=== PATIENT | female | born 1985 | race Caucasian/White ===

== ENCOUNTER 2021-05-18 19:59 | Emergency (ER) | payer MEDICAID, OTHER ==
[~2021-05-18] VITALS: Ht 152.4 cm; Wt 87.1 kg
[2021-05-18 20:11] VITALS: BP 147/47
[2021-05-18] MEDS ORDERED: LIDOCAINE 2% (LOCAL ANESTH.) PF 5ml SDV IJ ONE (20:30)
== END 2021-05-18 21:26 | disposition home or self-care (01) ==
LOC: EDBD 19:59 → ER 20:03
DX: S61.412A Laceration without foreign body of left hand, initial encounter (principal); V43.62XA Car passenger injured in collision with other type car in traffic accident, initial encounter; Y93.89 Activity, other specified; Y92.410 Unspecified street and highway as the place of occurrence of the external cause; Y99.8 Other external cause status
CPT/HCPCS: 12001; 99283; J2001

== ENCOUNTER 2021-10-14 17:10 | Emergency (ER) | payer MEDICAID ==
[~2021-10-14] VITALS: Ht 152.4 cm; Wt 80.0 kg
[2021-10-14 17:25] VITALS: BP 116/76
== END 2021-10-14 22:42 | disposition left against medical advice (07) ==
LOC: ER 17:10
DX: R21 Rash and other nonspecific skin eruption (principal); Z53.21 Procedure and treatment not carried out due to patient leaving prior to being seen by health care provider